=== PATIENT | male | born 1970 | race Two or more races ===

== ENCOUNTER 2025-10-01 07:10 | Emergency (ER) | payer BC ==
[~2025-10-01] VITALS: Ht 170.2 cm; Wt 90.7 kg
[2025-10-01] MEDS ORDERED: IBUP-1955 PO (07:41)
[2025-10-01] MEDS ORDERED: LIDO30AD10 TP (07:41)
[2025-10-01] MEDS ORDERED: LIDOCAINE 5% (PATCH) 1 EA PATCH TP ONE (07:48)
[2025-10-01] MEDS ORDERED: IBUPROFEN 600 MG TABLET ONE (07:48)
[2025-10-01] MEDS: LIDOCAINE 5% (PATCH) 1 EA PATCH TP STA (07:51)
[2025-10-01] MEDS: IBUPROFEN 600 MG TABLET PO ONE (07:51)
[2025-10-01 08:05] VITALS: BP 137/80; TEMP 98.5; O2SAT 98
== END 2025-10-01 08:06 | disposition home or self-care (01) ==
LOC: ER 07:15
DX: S20.212A Contusion of left front wall of thorax, initial encounter (principal); W01.0XXA Fall on same level from slipping, tripping and stumbling without subsequent striking against object, initial encounter; Y93.89 Activity, other specified; Y92.89 Other specified places as the place of occurrence of the external cause; Y99.8 Other external cause status
CPT/HCPCS: 71100-TC